=== PATIENT | female | born 1990 | race Caucasian/White ===

== ENCOUNTER 2018-02-21 17:55 | Emergency (ER) | payer OTHER ==
[~2018-02-21] VITALS: Ht 157.5 cm; Wt 86.2 kg
[2018-02-21 18:16] VITALS: Ht 157.5 cm; Wt 86.2 kg
[2018-02-21 19:29] VITALS: BP 120/80
== END 2018-02-21 19:29 | disposition home or self-care (01) ==
LOC: ED 17:55
DX: T25.311A Burn of third degree of right ankle, initial encounter (principal); X19.XXXA Contact with other heat and hot substances, initial encounter; Y93.89 Activity, other specified; Y92.89 Other specified places as the place of occurrence of the external cause; Y99.8 Other external cause status; Z88.2 Allergy status to sulfonamides

== ENCOUNTER 2018-08-26 14:46 | Emergency (ER) | payer OTHER | END 2018-08-26 15:38 | disposition left against medical advice (07) | LOC: ED 14:46 | DX: Z53.21 Procedure and treatment not carried out due to patient leaving prior to being seen by health care provider (principal) ==

== ENCOUNTER 2019-12-27 16:09 | Emergency (ER) | payer MEDICAID, SELFPAY ==
[~2019-12-27] VITALS: Ht 157.5 cm; Wt 65.8 kg
[2019-12-27 16:58] VITALS: BP 127/88; Ht 157.5 cm; Wt 65.8 kg
== END 2019-12-27 17:20 | disposition home or self-care (01) ==
LOC: ED 16:09
DX: B34.9 Viral infection, unspecified (principal); Z20.828 Contact with and (suspected) exposure to other viral communicable diseases; Z88.2 Allergy status to sulfonamides
CPT/HCPCS: U0003-CS

== ENCOUNTER 2020-03-25 12:49 | Emergency (ER) | payer MEDICAID ==
[~2020-03-25] VITALS: Ht 154.9 cm; Wt 86.2 kg
[2020-03-25 13:47] VITALS: Ht 154.9 cm; Wt 86.2 kg
[2020-03-25 18:54] VITALS: BP 115/60
== END 2020-03-25 18:54 | disposition home or self-care (01) ==
LOC: ED 12:49
DX: M54.5 Low back pain (principal); R20.2 Paresthesia of skin; R30.9 Painful micturition, unspecified; G89.29 Other chronic pain; Z88.2 Allergy status to sulfonamides
CPT/HCPCS: J1885

== ENCOUNTER 2020-06-03 19:06 | Emergency (ER) | payer MEDICAID, SELFPAY ==
[~2020-06-03] VITALS: Ht 154.9 cm; Wt 84.8 kg
[2020-06-03 19:07] VITALS: Ht 154.9 cm; Wt 84.8 kg
[2020-06-03 20:27] VITALS: BP 101/69
== END 2020-06-03 20:27 | disposition home or self-care (01) ==
LOC: ED 19:06
DX: U07.1 COVID-19 (principal); B34.9 Viral infection, unspecified; G89.29 Other chronic pain; Z90.49 Acquired absence of other specified parts of digestive tract; Z88.2 Allergy status to sulfonamides
CPT/HCPCS: U0003

== ENCOUNTER 2020-06-12 15:25 | Emergency (ER) | payer MEDICAID ==
[~2020-06-12] VITALS: Ht 154.9 cm; Wt 84.8 kg
[2020-06-12 15:26] VITALS: BP 137/87; Ht 154.9 cm; Wt 84.8 kg
== END 2020-06-12 16:27 | disposition home or self-care (01) ==
LOC: ED 15:25
DX: U07.1 COVID-19 (principal); B34.9 Viral infection, unspecified; G89.29 Other chronic pain; M54.9 Dorsalgia, unspecified; Z88.5 Allergy status to narcotic agent